=== PATIENT | male | born 1960 | race Caucasian/White ===

== ENCOUNTER → 2021-12-27 | Day surgery (SDC) | payer OTHER ==
[~2021-12-27] VITALS: Ht 172.7 cm; Wt 102.5 kg
[~2021-12-27] MED LIST: ASPIRIN EC81 MG PO; CARDIZEM CD240 MG PO; ISOSORBIDE MON120 MG PO; LISINOPRIL40 MG PO; LOPRESSOR100 MG PO; OMEPRAZOLE40 MG PO
[2021-12-27 11:48] LABS: BUN/CREAT RATIO (CALC) 8.2 RATIO; CREATININE 0.73 mg/dL (0.67-1.17); POTASSIUM 4.6 mmol/L (3.5-5.1)
== END | disposition home or self-care (01) ==
LOC: FAS 10:38
PROVIDERS: Anesthesiology
DX: K05.6 Periodontal disease, unspecified (principal); K02.9 Dental caries, unspecified; I25.2 Old myocardial infarction; G89.29 Other chronic pain; M54.9 Dorsalgia, unspecified; R94.31 Abnormal electrocardiogram [ECG] [EKG]; F17.210 Nicotine dependence, cigarettes, uncomplicated; I10 Essential (primary) hypertension; E78.5 Hyperlipidemia, unspecified; K21.9 Gastro-esophageal reflux disease without esophagitis; Z88.0 Allergy status to penicillin; Z20.822 Contact with and (suspected) exposure to COVID-19; Z95.1 Presence of aortocoronary bypass graft; Z95.5 Presence of coronary angioplasty implant and graft
CPT/HCPCS: 36415; 80048; 93005; J0610; J0690; J1885; J2250; J2704; J7120